=== PATIENT | male | born 1995 | race Caucasian/White ===

== ENCOUNTER 2016-11-24 21:41 | Emergency (ER) | payer OTHER ==
[~2016-11-24] VITALS: Ht 180.3 cm; Wt 72.8 kg
[2016-11-24 21:46] VITALS: TEMP 36.9; Ht 180.3 cm; Wt 72.8 kg
[2016-11-24] MEDS ORDERED: TRAM-10 PO (22:14)
[2016-11-24] MEDS ORDERED: AMOX500C3 PO (22:14)
[2016-11-24] MEDS ORDERED: AMOXICILLIN 500 MG CAP PO ONE (22:15)
[2016-11-24] MEDS ORDERED: TRAMADOL HCL 50 MG HOME PACK PO ONE (22:15)
[2016-11-24 22:42] VITALS: BP 118/70; PULSE 70; O2SAT 98
--- NOTE | 2016-11-24 22:44 | EMERGENCY ROOM VISIT NOTE ---
History First contact with patient: 22:01 Chief Complaint: DENTAL PAIN Stated Complaint: PAINFUL JAWLINE, BROKEN TOOTH TODAY Nursing Triage Summary: was eating and broke off left lower tooth. History of Present Illness The patient is a 21 year old male who presents to the Emergency Room with complaints of left lower dental pain for the past day after the tooth broke while eating. Patient has extensive dental decay. Patient has not seen a dentist in quite some time. Patient does smoke. He describes pain as aching, ranging in severity 6 out of 10. Nothing makes it better or worse. Patient denies chest pain, dyspnea, fever, chills, dysphagia, tongue swelling, facial swelling, neck stiffness, ear pain, cold symptoms, headache. Review of Systems See HPI for pertinent positives & negatives. A total of 10 systems reviewed and were otherwise negative. Past Medical/Surgical History Medical Problems: (1) Bronchitis (2) MRSA Family History Diabetes mellitus FH: cancer FH: heart disease FH: lung disease Hypertension Social History Smoking Status: Current Every Day Smoker Alcohol Use: none Marital Status: single Housing Status: unknown Occupation Status: employed Current/Historical Medications Scheduled Amoxicillin (Amoxil), 500 MG PO TID Scheduled PRN Tramadol (Ultram), 1 TAB PO Q4H PRN for Pain Allergies Coded Allergies: Acetaminophen (Verified Allergy, Unknown, rash, 03/01/16) Latex (Verified Allergy, Unknown, rash, 03/01/16) Physical Exam Vital Signs Date Time Temp Pulse Resp B/P Pulse Ox O2 Delivery O2 Flow Rate FiO2 11/24/16 21:46 36.9 66 18 140/69 97 Room Air Physical Exam VITALS: Vitals are noted on the nurse's note and reviewed by myself. Vital signs stable. GENERAL: White male with tobacco odor, in no acute distress, nondiaphoretic, well-developed well-nourished. SKIN: The skin was without rashes, erythema, edema, or bruising. There is no tenting of the skin. Capillary reflex less than 2 seconds. HEAD: Normocephalic atraumatic. EARS: External auditory canals clear, tympanic membranes pearly vargas without erythema or effusion bilaterally. EYES: Pupils equal round and reactive to light and accommodation. Conjunctivae without injection, sclerae without icterus. Extraocular movements intact. NOSE: Patent, turbinates without inflammation or discharge. No sinus tenderness. MOUTH: Mucous membranes moist. Pharynx without erythema or exudate. Uvula midline. Airway patent. Tongue does not deviate. Dental exam: Extensive dental decay throughout with no palpable abscess. No signs of Todd angina. Overall dental hygiene poor NECK: Supple without nuchal rigidity. No lymphadenopathy. No thyromegaly. Cervical spine is nontender. No JVD. No meningeal signs HEART: Regular rate and rhythm without murmurs gallops or rubs. LUNGS: Clear to auscultation bilaterally without wheezes, rales or rhonchi. No dullness to percussion. No retractions or accessory muscle use. ABDOMEN: Positive bowel sounds x 4. Normal tympanic percussion. Soft, nontender, without masses or organomegaly. Sanders sign negative. No guarding or rebound tenderness. MUSCULOSKELETAL: No muscle atrophy, erythema, or edema noted. NEURO: Patient was alert and oriented to person place and time. Normal sensation to light and sharp touch. No focal neurological deficits. Medical Decision & Procedures ED Course Prior records reviewed and summarized as above. Triage Nursing notes reviewed. The patient's history was concerning for dental pain Differential diagnosis: Etiologies such as cellulitis, abscess, Todd angina, gingivitis, cavity, as well as others were entertained.. Physical examination: The physical examination was consistent with dental pain from dental caries ER treatment provided: Amoxicillin, Ultram On reassessment the patient felt better. Diagnostics interpreted by me: Deferred This appears to be dental pain from dental caries. Patient had no symptoms palpable abscess. No signs of Todd angina. He was counseled appropriately hydrated verbalized understanding this. He was advised to follow-up with dentistry for definitive care here in the ER sooner for high fevers, facial swelling, neck stiffness, dysphagia, worsening signs or symptoms or as needed. By the evaluation outlined above emergent etiologies such as abscess, ludwigs angina as well as others were deemed relatively unlikely. The pt informed about the findings as listed above. All questions were answered and pleased with the treatment. Return instructions were outlined and the patient was discharged in stable condition. Outpatient prescription management: amoxil, ultram Referral: The patient was referred to dentistry for follow-up in 2 to 3 days for a recheck of the current condition. Medical Decision As above [place] Drug Monitoring Program Search Results: patient reviewed within database, see additional documentation (patient has had a few prescriptions in the past year) Impression Primary Impression: Tooth pain with chewing Additional Impression: Dental caries Departure Information Dispostion Home / Self-Care Condition GOOD Prescriptions Tramadol (Ultram) 50 Mg Tab 1 TAB PO Q4H Y for Pain, #14 TAB For Initial Treatment Prov: Ginger Wilder PA-C 11/24/16 Amoxicillin (AMOXIL) 500 Mg Cap 500 MG PO TID for 10 Days, #30 CAP Prov: Ginger Wilder PA-C 11/24/16 Referrals No Doctor, Assigned (PCP) Forms HOME CARE DOCUMENTATION FORM, IMPORTANT VISIT INFORMATION Patient Instructions Decay Tooth, Visit Dental, [facility] Additional Instructions Amoxicillin 500mg: Take one pill 3 times daily for 10 days for your infection. All antibiotics can cause diarrhea. If this occurs and you feel worse or it does not resolve in 1-2 days follow up with your doctor or return to the Emergency Department as this could be signs of serious underlying problems. Any medication can cause an allergic reaction, stop the pills immediately and return to the ER for rash, hives, breathing difficulties, or swelling. Ultram 50 mg: Take 1 pill every four hours for breakthrough pain. Avoid alcohol , operating machinery or dangerous equipment, working on ladders or roofs, DRIVING, or situations where being under the influence may be dangerous. It is recommended to use an mcul-qun-sdjdkwy stool softener such as Colace, 100mg twice daily while taking this medication to avoid constipation. Ibuprofen(Motrin, Advil) may be used for fever or pain. Use 600mg every six hours as needed. Take with food. Avoid using more than 2400mg in a 24 hour period. Do not use 2400mg per day for more than three consecutive days without physician direction. Prolonged inappropriate use can lead to stomach upset or ulcers. This medication can be taken if you need to drive, work, or perform activities which may be dangerous when taking narcotic pain medication. [place] teeth twice a day, floss daily and do warm saltwater gargles 3 times a day. See a dentist as soon as possible for definitive care for your dental problem. Return to ER sooner for facial swelling, fever, redness, worsening signs or symptoms or as needed. Problem Qualifiers
== END 2016-11-24 22:43 | disposition home or self-care (01) ==
LOC: C.EDB 21:43 → C.EDD 22:43
DX: K08.89 Other specified disorders of teeth and supporting structures (principal); F17.200 Nicotine dependence, unspecified, uncomplicated; Z83.3 Family history of diabetes mellitus; Z82.49 Family history of ischemic heart disease and other diseases of the circulatory system

== ENCOUNTER 2017-02-08 16:47 | Emergency (ER) | payer SELFPAY ==
[~2017-02-08] VITALS: Ht 180.3 cm; Wt 70.4 kg
[~2017-02-08 16:47] MED LIST: TRAM-10 PO
[2017-02-08 17:02] VITALS: BP 107/69; PULSE 86; TEMP 36.7; O2SAT 94; Ht 180.3 cm; Wt 70.4 kg
[2017-02-08] MEDS ORDERED: TRAM-10 PO (17:19)
[2017-02-08] MEDS ORDERED: AMOX500C3 PO (17:19)
--- NOTE | 2017-02-08 22:59 | EMERGENCY ROOM VISIT NOTE ---
History First contact with patient: 17:09 Chief Complaint: DENTAL PAIN Stated Complaint: SWOLLEN JAW/ PRESSURE/ VERY PAINFUL Nursing Triage Summary: Rigth sided dental pain. History of Present Illness The patient is a 21 year old male who presents to the Emergency Room with complaints of swelling of the right jaw and lump under the jaw line. The patient reports that he woke up this morning with swelling. He denied any swelling or discomfort yesterday. He now rates his discomfort an 8 out of 10. He is concerned about a possible dental abscess. He does not have a dentist. He denies any difficulty swallowing, fever or drainage in the mouth. He does report a history of chronic dental problems. Review of Systems 10 system review was performed and was negative except for pertinent positives and negatives as indicated in history of present illness Past Medical/Surgical History Medical Problems: (1) Bronchitis (2) MRSA Family History Diabetes mellitus FH: cancer FH: heart disease FH: lung disease Hypertension Social History Smoking Status: Current Every Day Smoker Alcohol Use: none Marital Status: single Housing Status: lives with family, unknown Occupation Status: unemployed Current/Historical Medications Scheduled Amoxicillin (Amoxil), 500 MG PO TID Scheduled PRN Tramadol (Ultram), 1 TAB PO Q4H PRN for Pain Tramadol (Ultram), 1-2 TAB PO Q4H PRN for Pain Allergies Coded Allergies: Acetaminophen (Verified Allergy, Unknown, rash, 03/01/16) Latex (Verified Allergy, Unknown, rash, 03/01/16) Physical Exam Vital Signs Date Time Temp Pulse Resp B/P Pulse Ox O2 Delivery O2 Flow Rate FiO2 02/08/17 17:02 36.7 86 18 107/69 94 Room Air Pain Rating (0-10): 6.0 Physical Exam CONSTITUTIONAL: Healthy and well nourished. Alert and oriented X 3 with positive affect. She does not appear in any acute distress. HEENT: Examination shows minimal edema over the right mandible. Pupils equal, round and reactive. Ears and nares are clear. OROPHARYNX: The patient has poor dentition and a severely decayed mandibular premolar. There is no gingival erythema, fluctuance or pointing. LYMPHATICS: There is a singular right submandibular lymph node. No submental or cervical chain adenopathy. NECK: Full active range of motion without discomfort. INTEGUMENTARY: No rash or other significant dermatologic conditions noted. NEUROLOGIC: No focal neurologic deficits noted. Medical Decision & Procedures ED Course Patient history and physical exam were performed. Nurse's notes were reviewed. Vital signs were reviewed and were normal. The patient was provided a prescription for amoxicillin and tramadol. He was also encouraged to administer ibuprofen 800 mg every 8 hours. He was instructed to find and follow -up with a dentist for further definitive management. He may also call his family doctor for further treatment until he can find a dentist. The patient was advised that the emergency department does not provide dental services, referrals or chronic dental pain management. The patient voiced understanding of all discharge instructions, and rated his pain a 5 out of 10 at the time of discharge. He refused any analgesics while in the emergency department. Medical Decision Impression Primary Impression: Periapical abscess Departure Information Dispostion Home / Self-Care Condition FAIR Prescriptions Tramadol (Ultram) 50 Mg Tab 1-2 TAB PO Q4H Y for Pain, #20 TAB For Initial Treatment Prov: Valdez Ariza PA 02/08/17 Amoxicillin (AMOXIL) 500 Mg Cap 500 MG PO TID for 10 Days, #30 CAP Prov: Valdez Ariza PA 02/08/17 Forms HOME CARE DOCUMENTATION FORM, IMPORTANT VISIT INFORMATION Patient Instructions [facility] Additional Instructions Complete all Augmentin antibiotics as prescribed. Ibuprofen 800 mg every 8 hours. Ultram as prescribed and if needed for worse pain. YOU MUST SEE A DENTIST FOR DEFINITIVE CARE. THE EMERGENCY DEPARTMENT DOES NOT PROVIDE DENTAL SERVICES, REFERRALS OR CHRONIC DENTAL PAIN MANAGEMENT. YOU MAY ALSO CALL YOUR FAMILY DOCTOR FOR PAIN MANAGEMENT UNTIL YOU FIND A DENTIST.
== END 2017-02-08 17:50 | disposition home or self-care (01) ==
LOC: C.EDB 16:48 → C.EDA 17:50
DX: K04.7 Periapical abscess without sinus (principal); F17.200 Nicotine dependence, unspecified, uncomplicated; Z86.14 Personal history of Methicillin resistant Staphylococcus aureus infection; Z83.3 Family history of diabetes mellitus; Z82.49 Family history of ischemic heart disease and other diseases of the circulatory system

== ENCOUNTER 2017-04-16 16:34 | Emergency (ER) | payer SELFPAY ==
[~2017-04-16] VITALS: Ht 180.3 cm; Wt 68.1 kg
[2017-04-16 16:36] VITALS: TEMP 36.9; Ht 180.3 cm; Wt 68.1 kg
[2017-04-16] MEDS ORDERED: IBUPROFEN 800 MG TAB PO STA (16:55)
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
--- NOTE | 2017-04-16 17:29 | DIAGNOSTIC IMAGING REPORT ---
RIGHT HAND MIN 3 VIEWS ROUTINE CLINICAL HISTORY: Right hand pain status post trauma COMPARISON: None. DISCUSSION: There is irregularity involving the base of the fifth metacarpal. A nondisplaced intraarticular fracture is suspected. No dislocations are evident. IMPRESSION: Nondisplaced intra-articular fracture involving the base of the fifth metacarpal Electronically signed by: Ren León M.D. 04/16/2017 5:27 PM Dictated Date/Time: 04/16/2017 5:27 PM
[2017-04-16 18:19] VITALS: BP 129/63; PULSE 71; O2SAT 96
== END 2017-04-16 18:20 | disposition home or self-care (01) ==
LOC: C.EDB 16:35 → C.EDD 18:20
DX: S62.346A Nondisplaced fracture of base of fifth metacarpal bone, right hand, initial encounter for closed fracture (principal); W22.8XXA Striking against or struck by other objects, initial encounter; F17.210 Nicotine dependence, cigarettes, uncomplicated

== ENCOUNTER 2023-08-19 10:52 | Inpatient (IN) ==
[2023-08-19] MEDS ORDERED: ALUMINUM/MAGNESIUM SUSP 30 ML UDC PO STA (11:27)
--- NOTE | 2023-08-19 11:30 | Emergency Department Note ---
Impression & Plan Anxiety, Suicidal ideation ED Provider Note NAME: STANISLAW PARKS II AGE: 28 SEX: M : 1995 ARRIVES VIA: Ambulance INFORMANT: Patient, ED PROVIDER(S): Marcelle Josue MD CHIEF COMPLAINT: Anxiety HPI: This is a 28-year-old male presenting for anxiety the patient states that he thinks he was having a panic attack. He woke up this morning noticed his heart was racing. He tried to calm it down but it would not. He noticed chest burning. This concerned that is having a heart attack and called 911. He states this happened before with previous anxiety/panic attacks. He now does not feel like he is having a heart attack but does feel anxious. He notes he does have a chest burning previously but has never had a work-up for it. Never been diagnosed with GERD. He has recently started on Effexor ordered as of yesterday. He otherwise notes he takes Suboxone. He denies any SI or HI. Does feel depressed overall. No fevers, chills, nausea, vomiting, diarrhea, constipation. ROS: See above HPI for pertinent positives & negatives. A total of 10 systems reviewed and were otherwise negative. PAST MEDICAL HISTORY: See Below PAST SURGICAL HISTORY: See Below FAMILY HISTORY: See Below SOCIAL HISTORY: See Below HOME MEDICATIONS: See Below ALLERGIES: See Below VITALS: See Below PHYSICAL EXAMINATION: General: resting comfortably in no acute distress, anxious appearing Head: Normocephalic and atraumatic Eyes: Normal inspection, extraocular muscles intact, no conjunctival pallor Ear, nose, throat: Normal external exam Neck: Normal range of motion Respiratory: Patient is in no respiratory distress, lungs clear to auscultation bilaterally Cardiovascular: RRR without murmur appreciated GI: soft, nontender, no guarding or rebound Extremities: Moves all extremities Neuro: The patient awake and alert, appropriately conversive,no focal decifits Skin: Warm, dry, and intact MEDICAL DECISION MAKING: This is a 28-year-old male presenting for anxiety. We will do screening work-up with EKG. Low concern for clinical ACS. No shortness of breath or hypoxia/tachycardia to suggest PE. Clinical concern for anxiety versus GERD. Patient's EKG is reviewed as below, no ST segment elevation consistent with STEMI. Otherwise patient blood work is reassuring without electrolyte disturbances, only slight anemia. Patient eventually requested inpatient as he was now suicidal,will add on psych screening labs. This lab work is otherwise unremarkable, he is medically clear for psychiatric intervention. Triage Nursing notes reviewed. Prior medical records reviewed Vital Signs: reviewed and remarkable for no significant abnormalities Differential diagnosis: Anxiety, ACS, PE ER treatment provided: See below Diagnostics interpreted by me: ECG: ECG independently interpreted by me with normal sinus rhythm, rate of 79, normal axis, normal TN, normal QRS, normal QTc, no ST segment elevations consistent with STEMI criteria Cardiac Monitoring: An order was placed for continuous cardiac monitoring. The monitor shows a rate of 72 with sinus rhythm Laboratory studies: As stated above and show below. Consultation(s): None Past Med/Surg History Medical History Drug abuse Dental caries Cellulitis No pertinent past medical history Surgical History No pertinent past surgical history Family History Other No pertinent family history Social History Smoking Status: Current some day smoker Hx Alcohol Use: No Hx Substance Use: No Preferred Language: Ethiopian Communication Ability: Effective Account Executive Healthcare Required: No Beliefs That Will Affect Care: None Feels Safe at Home: Yes Gender Identity: Male Assistive Devices: None Allergies Allergies Allergy/AdvReac Type Severity Reaction Status Date / Time acetaminophen Allergy Mild rash Verified 01/02/19 05:42 latex Allergy Mild rash Verified 01/02/19 05:42 Home Meds Home Medications Medication Instructions Recorded Confirmed buprenorphine 300 mg/1.5 mL 0 mg subcut UD 12/07/22 08/19/23 solution,exten.rel.subcutaneous syringe (Sublocade) hydroxyzine pamoate 25 mg capsule 25 mg PO Q8 PRN Anxiety 08/19/23 08/19/23 venlafaxine 75 mg capsule,extended 75 mg PO QPM 08/19/23 08/19/23 release 24 hr Results & Data (ED) Vital Signs Vital Signs - 24 hr 08/19/23 10:56 08/19/23 11:48 08/19/23 13:00 Temperature 36.7 C Temperature Source Oral Pulse Rate 68 Pulse Rate [Right Finger] 74 Respiratory Rate 20 20 Respiratory Effort / Characteristics Non-Labored Non-Labored Respiratory Depth Normal Normal Blood Pressure 117/70 Blood Pressure [Right Arm] 122/77 Blood Pressure Mean 85 Blood Pressure Mean [Right Arm] 92 Pulse Oximetry 98 98 Oxygen Delivery Method Room Air Room Air Room Air Sepsis Recent Fever Within 48 Hours No Sepsis New/Unexplained Change in Mental Status N/A Sepsis Action Taken by Nursing No Action Required 08/19/23 13:49 Temperature Temperature Source Pulse Rate Pulse Rate [Right Finger] 60 Respiratory Rate 17 Respiratory Effort / Characteristics Non-Labored Spontaneous Respiratory Depth Normal Blood Pressure Blood Pressure [Right Arm] 115/68 Blood Pressure Mean Blood Pressure Mean [Right Arm] 83 Pulse Oximetry 98 Oxygen Delivery Method Room Air Sepsis Recent Fever Within 48 Hours Sepsis New/Unexplained Change in Mental Status Sepsis Action Taken by Nursing Laboratory Data 08/19/23 11:48 08/19/23 11:48 Lab Results 08/19/23 08/19/23 08/19/23 Range/Units 11:48 12:39 12:41 WBC 6.16 (4.8-10.8) K/ul RBC 4.37 L (4.70-6.10) M/uL Hgb 13.6 L (14.0-18.0) g/dl Hct 38.9 L (42.0-52.0) % MCV 89.0 (80.0-100.0) fL MCH 31.1 (25.0-34.0) pg MCHC 35.0 (32.0-36.0) g/dL RDW Std Deviation 41.5 (36.4-46.3) fL RDW Coeff of Aline 12.6 (11.5-14.5) % Plt Count 268 (130-400) K/uL MPV 9.6 (9.4-12.4) fL Immature Gran % (Auto) 0.2 % Neut % (Auto) 74.8 % Lymph % (Auto) 13.5 % [place] % (Auto) 8.0 % Eos % (Auto) 2.4 % Baso % (Auto) 1.1 % Neut # (Auto) 4.61 (1.40-6.50) K/uL Lymph # (Auto) 0.83 L (1.20-3.40) K/uL [place] # (Auto) 0.49 (0.11-0.59) K/uL Eos # (Auto) 0.15 (0.00-0.50) K/uL Baso # (Auto) 0.07 (0.00-0.20) K/uL Immature Gran # (Auto) 0.01 (0.01-0.20) K/uL Sodium 139 (136-145) mmol/L Potassium 4.1 (3.5-5.1) mmol/L Chloride 104 (98-107) mmol/L Carbon Dioxide 31 (21-32) mmol/L Anion Gap 4 (3-11) BUN 12 (6-23) mg/dl Creatinine 0.69 (0.6-1.4) mg/dl Est Cr Clr Drug Dosing 133.3 ml/min Est GFR ( Amer) 147.6 ml/min Est GFR (Non-Af Amer) 127.4 ml/min BUN/Creatinine Ratio 17.4 (10-20) Glucose 99 (70-99(Fasting)) mg/dl Calcium 9.6 (8.6-10.3) mg/dl TSH 1.213 (0.300-4.500) uIu/ml Urine Color Yellow Urine Appearance Clear (Clear) Urine pH 7.0 (4.5-7.5) Ur Specific [place] 1.028 (1.000-1.030) Urine Protein Negative (Negative) Urine Glucose (UA) Negative (Negative) Urine Ketones Negative (Negative) Urine Blood Negative (Negative) Urine Nitrite Negative (Negative) Urine Bilirubin Negative (Negative) Urine Urobilinogen Negative (Negative) Ur Leukocyte Esterase Negative (Negative) Salicylates < 3.0 L (3.0-30) mg/dl Urine Opiates Screen Neg (Neg) Ur Methadone, Qual Neg (Neg) Acetaminophen < 3 L (10-30) ug/ml Urine Barbiturates Neg (Neg) Ur Phencyclidine (PCP) Neg (Neg) U Amphetamin/Meth Scrn Neg (Neg) MDMA (Ecstasy) Screen Neg (Neg) U Benzodiazepines Scrn Neg (Neg) Ur Cocaine Metabolite Neg (Neg) U Marijuana (THC) Screen Neg (Neg) Ethyl Alcohol mg/dL < 10.0 (<10.0) mg/dl SARS-CoV-2, RNA, NAAT (NEGATIVE) 11/09/23 Range/Units 12:57 WBC (4.8-10.8) K/ul RBC (4.70-6.10) M/uL Hgb (14.0-18.0) g/dl Hct (42.0-52.0) % MCV (80.0-100.0) fL MCH (25.0-34.0) pg MCHC (32.0-36.0) g/dL RDW Std Deviation (36.4-46.3) fL RDW Coeff of Aline (11.5-14.5) % Plt Count (130-400) K/uL MPV (9.4-12.4) fL Immature Gran % (Auto) % Neut % (Auto) % Lymph % (Auto) % [place] % (Auto) % Eos % (Auto) % Baso % (Auto) % Neut # (Auto) (1.40-6.50) K/uL Lymph # (Auto) (1.20-3.40) K/uL [place] # (Auto) (0.11-0.59) K/uL Eos # (Auto) (0.00-0.50) K/uL Baso # (Auto) (0.00-0.20) K/uL Immature Gran # (Auto) (0.01-0.20) K/uL Sodium (136-145) mmol/L Potassium (3.5-5.1) mmol/L Chloride (98-107) mmol/L Carbon Dioxide (21-32) mmol/L Anion Gap (3-11) BUN (6-23) mg/dl Creatinine (0.6-1.4) mg/dl Est Cr Clr Drug Dosing ml/min Est GFR ( Amer) ml/min Est GFR (Non-Af Amer) ml/min BUN/Creatinine Ratio (10-20) Glucose (70-99(Fasting)) mg/dl Calcium (8.6-10.3) mg/dl TSH (0.300-4.500) uIu/ml Urine Color Urine Appearance (Clear) Urine pH (4.5-7.5) Ur Specific [place] (1.000-1.030) Urine Protein (Negative) Urine Glucose (UA) (Negative) Urine Ketones (Negative) Urine Blood (Negative) Urine Nitrite (Negative) Urine Bilirubin (Negative) Urine Urobilinogen (Negative) Ur Leukocyte Esterase (Negative) Salicylates (3.0-30) mg/dl Urine Opiates Screen (Neg) Ur Methadone, Qual (Neg) Acetaminophen (10-30) ug/ml Urine Barbiturates (Neg) Ur Phencyclidine (PCP) (Neg) U Amphetamin/Meth Scrn (Neg) MDMA (Ecstasy) Screen (Neg) U Benzodiazepines Scrn (Neg) Ur Cocaine Metabolite (Neg) U Marijuana (THC) Screen (Neg) Ethyl Alcohol mg/dL (<10.0) mg/dl SARS-CoV-2, RNA, NAAT NEGATIVE (NEGATIVE) Administered Medications Miscellaneous (Remove Nicoderm Patch) 1 each N/A DAILY@0859 ON LICENSE OF [facility] Stop: 09/18/23 16:58 Last Admin: 08/19/23 17:23 Dose: Not Given Documented By: EDWIN Nicotine (Nicotine 14 Mg/24 Hr Patch) 14 mg TD QAM ESTEBAN Stop: 09/18/23 16:59 Last Admin: 08/19/23 17:23 Dose: Not Given Documented By: EDWIN Nicotine Polacrilex (Nicotine Polacrilex 2 Mg Gum) 2 piece MT PRN PRN PRN Reason: Nicotine Withdrawal Symptoms Stop: 09/18/23 16:47 Last Admin: 08/19/23 17:44 Dose: 2 piece Documented By: EDWIN Discontinued Medications Al Hydrox/Mg Hydrox/Simethicone (Aluminum/Magnesium Susp 30 Ml Udc) 30 ml PO NOW STA Stop: 08/19/23 11:28 Last Admin: 08/19/23 11:48 Dose: 30 ml Documented By: NRB Lorazepam (Lorazepam 1 Mg Tab) 1 mg SL NOW STA Stop: 08/19/23 14:04 Last Admin: 08/19/23 14:09 Dose: 1 mg Documented By: BS Nicotine (Nicotine 14 Mg/24 Hr Patch) 14 mg TD QAM ESTEBAN Stop: 09/18/23 15:59 Last Admin: 08/19/23 16:53 Dose: Not Given Documented By: ITALO Discharge Plan Visit Data Chief Complaint: Anxiety ED Provider: Marcelle Josue Discharge Problem: Anxiety, Suicidal ideation Patient Disposition: Admitted As Inpatient Discharge Instructions Interventions: ED Discharge Assessment Last Done: 08/19/23 16:22
[2023-08-19 12:19] LABS: Basophils # (auto) 0.07 K/uL (0.00-0.20); Basophils % (auto) 1.1 %; Eosinophils # (auto) 0.15 K/uL (0.00-0.50); Eosinophils % (auto) 2.4 %; Hematocrit (blood only) 38.9 % (42.0-52.0); Hemoglobin 13.6 g/dl (14.0-18.0); Immature Granulocytes # (auto) 0.01 K/uL (0.01-0.20); Immature Granulocytes % (auto) 0.2 %; Lymphocytes # (auto) 0.83 K/uL (1.20-3.40); Lymphocytes % (auto) 13.5 %; Mean Corpuscular Hemoglobin 31.1 pg (25.0-34.0); Mean Platelet Volume 9.6 fL (9.4-12.4); Monocytes # (auto) 0.49 K/uL (0.11-0.59); Neutrophils # (auto) 4.61 K/uL (1.40-6.50); Neutrophils % (auto) 74.8 %; Platelet Count 268 K/uL (130-400); RDW Coefficient of Variation 12.6 % (11.5-14.5); RDW Standard Deviation 41.5 fL (36.4-46.3); Red Blood Count 4.37 M/uL (4.70-6.10); White Blood Count 6.16 K/ul (4.8-10.8)
[2023-08-19 12:35] LABS: BUN Creatinine Ratio 17.4 (10-20); Calcium 9.6 mg/dl (8.6-10.3); Creatinine Clr Calc Pharmacy 133.3 ml/min; Est GFR (African American) 147.6 ml/min; Est GFR (Non-African American) 127.4 ml/min; Potassium 4.1 mmol/L (3.5-5.1)
[2023-08-19 13:14] LABS: Appearance Urine Clear (Clear); Bilirubin Urine Negative (Negative); Blood Urine Negative (Negative); Color Urine Yellow; Glucose Urine UA Negative (Negative); Ketones Urine Negative (Negative); Leukocyte Esterase Urine Negative (Negative); Nitrite Urine Negative (Negative); Protein Urine Negative (Negative); Specific Gravity Urine 1.028 (1.000-1.030); Urobilinogen Urine Negative (Negative)
[2023-08-19 13:41] LABS: Amphetamines+Metham, Urine Neg (Neg); Barbiturates, Urine Neg (Neg); Benzodiazepine, Urine Neg (Neg); Cocaine, Urine Neg (Neg); MDMA (Ecstacy), Urine Neg (Neg); Methadone, Urine Neg (Neg); Opiate, Urine Neg (Neg); Phencyclidine, Urine Neg (Neg)
[2023-08-19] MEDS ORDERED: LORazepam 1 MG TAB SL STA (14:03)
[2023-08-19 14:10] LABS: Acetaminophen < 3 ug/ml (10-30); Salicylate < 3.0 mg/dl (3.0-30)
[2023-08-19] MEDS ORDERED: hydrOXYzine HCl 25 MG TAB PO PRN ×3 (15:56→16:48)
[2023-08-19] MEDS ORDERED: SODIUM CHLORIDE 0.65% NA SOLN 45 ML (OCEAN) PRN ×2 (15:56→16:48)
[2023-08-19] MEDS ORDERED: NICOTINE POLACRILEX 2 MG GUM MT PRN (15:56)
[2023-08-19] MEDS ORDERED: BISMUTH SUBSALICYLATE LIQD 236 ML PO PRN ×2 (15:56→16:48)
[2023-08-19] MEDS ORDERED: ALUMINUM/MAGNESIUM SUSP 30 ML UDC PO PRN ×2 (15:56→16:48)
[2023-08-19] MEDS ORDERED: ACETAMINOPHEN 325 MG TAB PO PRN ×2 (15:56→16:48)
[2023-08-19] MEDS ORDERED: MAGNESIUM HYDROXIDE SUSP 30 ML UDC PO PRN ×2 (15:56→16:48)
[2023-08-19] MEDS ORDERED: NICOTINE 14 MG/24 HR PATCH TD SCH (16:00)
[2023-08-19] MEDS: NICOTINE 14 MG/24 HR PATCH TD SCH ×2 (17:19→17:23)
[2023-08-19] MEDS: NICOTINE POLACRILEX 2 MG GUM MT PRN ×2 (17:44→21:05)
[2023-08-19] MEDS: buprenorphine HCL 8 MG SUBL SL SCH (20:35)
--- NOTE | 2023-08-20 06:20 | History & Physical ---
Date of Service August 20, 2023 Impression / Recommendations Impression 28 yo male with history of panic attacks and SI, hx of opiod dependence on Suboxone, presented to ED X2 in 1 week. Overall, I spent a total of 60 minutes with this case, including review of chart, direct evaluation of the patient, counseling the patient, ordering medication, coordination with nursing, interdisciplinary team meeting, risk assessment, and documentation. (1) Depressive disorder: (2) Panic disorder: Plan The patient was admitted to the [facility] ([facility] [place]) on q15 min checks (behavioral with suicide precautions) for safety. The patient will participate in group, recreational, and milieu therapies and will be offered additional individual and family sessions as clinically appropriate. Risks/benefits/alternatives reviewed re: retrial of lower dose Lexapro vs. another SSRI. Patient preferred trial of Zoloft and will receive now dose 25 mg. Inventory Assets Strengths: future focussed re: relationships, help seeking Needs: increase coping and outpatient services Suicide Risk Level Suicide Risk Level: High-Moderate (q15 min suicide checks) Risk Factors Assessment Male: Yes : Yes Do You Have Access To A Gun?: No Health Problems: No Mental Health Diagnoses: Yes Substance Use Disorders: Yes Previous Attempt: No Family History of Suicide: No Previous Psychiatric Hospitalization: No Protective Factors Assessment Responsible for Young Children: Yes Employed: No Stable Relationships: Yes Supportive Family: Yes Psychiatric History Identifying Data STANISLAW PARKS is a 28-year-old M from [place] who was admitted on 08/19/23 15:56 on a 201 voluntary commitment for SI. Chief Complaint "I want these panic attacks to stop." History of Present Illness as per ED CM: Met with pt per nursing request after pt stated he has been thinking about suicide. Pt reported to the ED doctor that he had no SI or HI. He is stating now that he is experiencing both. He reports that he has SI daily for most, if not all of the day. He is not able to make these thoughts go away and states that he has been trying to figure out which way would be the least painful way to kill himself. Pt states he has not landed on a solid plan as of yet but does not feel he can remain safe outpatient anymore. His homicidal thoughts are not directed at anyone specific. He does not have any plans to hurt or kill anyone else but state these thoughts just pop up in his head at random times. Pt states that he does not currently have any outpatient providers. He did set up an appointment with [facility] for Wednesday, August 23, 2023, but does not feel he can make it to this appointment safely. Pt states he is unsure if this is an appointment for medication or for counseling. 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 He states he is currently prescribed Subutex for his prior drug use and that he has not used any substance since November 2022. Pt denies any alcohol use. Pt states that there have been no triggering events leading to his SI and HI. He was previously on Lexapro about 2 years ago and found this to be helpful but stopped taking it as he felt he no longer needed it. Pt also experiences anxiety daily that he does not feel he has good control over. Of note the patient had been seen in ED 1 week ago for panic and was referred to [facility]. It seems that he ?tried to restart Lexapro on his own and reacted to the dose. Similarly started Effexor day prior to representing to the ED with panic and then later endorsing SI. Today the patient reports no particular triggering stressor though he now admits he's on probation, out of work, living with family, and has a young child with his girlfriend who he hopes to . He was incarcerated for approximately 60 days on a violation, seemingly for use of "methadone, maybe oxyocodone." Otherwise, he reports on some form of Suboxone for 5 years. 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 He reports some social anxiety and describes himself as an introvert at baseline with little social interaction outside of family. Past Psychiatric History Outpatient Services: set up for an intake with [facility]. Previous Psych Admissions: none Do You Have Access To A Gun?: No History of Previous Suicide Attempt: No Past Medication Trials: Vistaril 25 mg ineffective Allergies Allergy/AdvReac Type Severity Reaction Status Date / Time acetaminophen Allergy Mild rash Verified 01/02/19 05:42 latex Allergy Mild rash Verified 01/02/19 05:42 Home Medications Medication Instructions Recorded Confirmed Type buprenorphine 300 mg/1.5 mL 0 mg subcut UD 12/07/22 08/19/23 History solution,exten.rel.subcutaneous syringe (Sublocade) hydroxyzine pamoate 25 mg capsule 25 mg PO Q8 PRN Anxiety 08/19/23 08/19/23 History venlafaxine 75 mg capsule,extended 75 mg PO QPM 08/19/23 08/19/23 History release 24 hr Family History Family History of: Doesn't Know Alcohol History Hx of Alcohol Use Over the Past 12 Months: No AUDIT Total Score: 0 Smoking Use Have You Smoked or Used Tobacco Products in the Last 30 Days: Yes tobacco type: cigarettes Smoking Status: Current some day smoker Smoking packs per day: 5 Substance History Hx of Prescription Med Misuse Over the Past 12 Months: No Hx of Over the Counter Med Misuse Over the Past 12 Months: No Hx of Inhalent Misuse Over the Past 12 Months: No Hx of Organic Substance Use Over the Past 12 Months: No Hx of Illegal Substances/Street Drug Use Over Past 12 Months: Yes (Nov 2022, Oxy and Meth) Problems as a Result of Past Substance Use: None Identified Personal History Living Arrangements: Home Highest Grade Completed: Did Not Graduate High School Employment Status: Unemployed Marital Status: Single Beliefs That Will Affect Care: None Hx Legal Problems: Yes (4 incarcerations, last on drug charge (reports others related to theft)) Hx Traumatic Life Events: No Patient History Medical History Drug abuse Dental caries Cellulitis No pertinent past medical history Surgical History No pertinent past surgical history Family History Other No pertinent family history Social History Smoking Status: Current some day smoker Hx Alcohol Use: No Hx Substance Use: No Preferred Language: Japanese Communication Ability: Effective Cane Pusher Required: No Beliefs That Will Affect Care: None Feels Safe at Home: Yes Gender Identity: Male Assistive Devices: None Review of Systems Review of Systems: All systems reviewed & are unremarkable except as noted in HPI & below Physical Exam Psychiatric: Orientation: alert and oriented x 3 Apperance: appropriately dressed and appropriately groomed Eye Contact: good eye contact Motor Behavior: no abnormal motor movements Speech: normal rate/rhythm/volume of speech Affect: + depressed affect Mood: + depressed mood Thought Process: goal directed thought process Thought Content: reality based without delusions Suicidal Thoughts: denies suicidal plan (though told ED he had been thinking of least painful way to ) and denies suicidal intent; + reports suicidal thoughts (intermittent, passive) Homicidal Thoughts: denies homicidal thoughts Hallucinations: no auditory hallucinations and no visual hallucinations Cognition: attention grossly intact and language grossly intact Estimated Intelligence: consistent with education level Insight: + limited insight Judgment: + limited judgement Vital Signs (Past 24 Hours): Last Vital Signs Temp 36.5 C 08/19/23 16:56 Pulse 67 08/19/23 16:56 Resp 16 08/19/23 16:56 BP 110/64 08/19/23 16:56 Pulse Ox 100 08/19/23 16:56 O2 Del Method Room Air 08/19/23 16:56 Exam Statement: A physical exam was performed in the ED by Dr. Josue for the purposes of medical clearance. I accept that physical as correct and adequate for the purposes of the inpatient physical exam. Results & Data ([facility]) Laboratory Results Laboratory Results - last 24 hr 08/19/23 08/19/23 08/19/23 11:48 12:39 12:41 WBC 6.16 RBC 4.37 L Hgb 13.6 L Hct 38.9 L MCV 89.0 MCH 31.1 MCHC 35.0 RDW Std Deviation 41.5 RDW Coeff of Aline 12.6 Plt Count 268 MPV 9.6 Immature Gran % (Auto) 0.2 Neut % (Auto) 74.8 Lymph % (Auto) 13.5 [place] % (Auto) 8.0 Eos % (Auto) 2.4 Baso % (Auto) 1.1 Neut # (Auto) 4.61 Lymph # (Auto) 0.83 L [place] # (Auto) 0.49 Eos # (Auto) 0.15 Baso # (Auto) 0.07 Immature Gran # (Auto) 0.01 Sodium 139 Potassium 4.1 Chloride 104 Carbon Dioxide 31 Anion Gap 4 BUN 12 Creatinine 0.69 Est Cr Clr Drug Dosing 133.3 Est GFR ( Amer) 147.6 Est GFR (Non-Af Amer) 127.4 BUN/Creatinine Ratio 17.4 Glucose 99 Calcium 9.6 TSH 1.213 Urine Color Yellow Urine Appearance Clear Urine pH 7.0 Ur Specific [place] 1.028 Urine Protein Negative Urine Glucose (UA) Negative Urine Ketones Negative Urine Blood Negative Urine Nitrite Negative Urine Bilirubin Negative Urine Urobilinogen Negative Ur Leukocyte Esterase Negative Salicylates < 3.0 L Urine Opiates Screen Neg Ur Methadone, Qual Neg Acetaminophen < 3 L Urine Barbiturates Neg Ur Phencyclidine (PCP) Neg U Amphetamin/Meth Scrn Neg MDMA (Ecstasy) Screen Neg U Benzodiazepines Scrn Neg Ur Cocaine Metabolite Neg U Marijuana (THC) Screen Neg Ethyl Alcohol mg/dL < 10.0 SARS-CoV-2, RNA, NAAT 08/19/23 12:57 WBC RBC Hgb Hct MCV MCH MCHC RDW Std Deviation RDW Coeff of Aline Plt Count MPV Immature Gran % (Auto) Neut % (Auto) Lymph % (Auto) [place] % (Auto) Eos % (Auto) Baso % (Auto) Neut # (Auto) Lymph # (Auto) [place] # (Auto) Eos # (Auto) Baso # (Auto) Immature Gran # (Auto) Sodium Potassium Chloride Carbon Dioxide Anion Gap BUN Creatinine Est Cr Clr Drug Dosing Est GFR ( Amer) Est GFR (Non-Af Amer) BUN/Creatinine Ratio Glucose Calcium TSH Urine Color Urine Appearance Urine pH Ur Specific [place] Urine Protein Urine Glucose (UA) Urine Ketones Urine Blood Urine Nitrite Urine Bilirubin Urine Urobilinogen Ur Leukocyte Esterase Salicylates Urine Opiates Screen Ur Methadone, Qual Acetaminophen Urine Barbiturates Ur Phencyclidine (PCP) U Amphetamin/Meth Scrn MDMA (Ecstasy) Screen U Benzodiazepines Scrn Ur Cocaine Metabolite U Marijuana (THC) Screen Ethyl Alcohol mg/dL SARS-CoV-2, RNA, NAAT NEGATIVE Diagnostic Findings EKG NSR with nl QTc Current Inpatient Medications Current Inpatient Medications: Current Inpatient Medications Acetaminophen (Acetaminophen 325 Mg Tab) 650 mg PO Q4H PRN PRN Reason: Headache or Minor Fever Stop: 09/18/23 16:47 Al Hydrox/Mg Hydrox/Simethicone (Aluminum/Magnesium Susp 30 Ml Udc) 30 ml PO Q4H PRN PRN Reason: GI Upset Stop: 09/18/23 16:47 Bismuth Subsalicylate (Bismuth Subsalicylate Liqd 236 Ml) 15 ml PO PRN PRN PRN Reason: Loose Stool Stop: 09/18/23 16:47 Buprenorphine HCl (Buprenorphine Hcl 8 Mg Subl) 8 mg SL BID [facility] Stop: 09/18/23 20:59 Last Admin: 08/19/23 20:35 Dose: 8 mg Hydroxyzine HCl (Hydroxyzine Hcl 25 Mg Tab) 50 mg PO HSZ PRN PRN Reason: Insomnia Stop: 09/18/23 16:47 Hydroxyzine HCl (Hydroxyzine Hcl 25 Mg Tab) 25 mg PO Q4H PRN PRN Reason: Anxiety Stop: 09/18/23 16:47 Magnesium Hydroxide (Magnesium Hydroxide Susp 30 Ml Udc) 30 ml PO DAILY PRN PRN Reason: Constipation Stop: 09/18/23 16:47 Miscellaneous (Remove Nicoderm Patch) 1 each N/A DAILY@0859 [facility] Stop: 09/18/23 16:58 Last Admin: 08/19/23 17:23 Dose: Not Given Nicotine (Nicotine 14 Mg/24 Hr Patch) 14 mg TD QAM [facility] Stop: 09/18/23 16:59 Last Admin: 08/19/23 17:23 Dose: Not Given Nicotine Polacrilex (Nicotine Polacrilex 2 Mg Gum) 2 piece MT PRN PRN PRN Reason: Nicotine Withdrawal Symptoms Stop: 09/18/23 16:47 Last Admin: 08/19/23 21:05 Dose: 2 piece Sodium Chloride (Sodium Chloride 0.65% Na Soln 45 Ml ([place])) 1 - 2 sprays NA PRN PRN PRN Reason: Nasal Dryness/Congestion Stop: 09/18/23 16:47
[2023-08-20] MEDS: buprenorphine HCL 8 MG SUBL SL SCH ×2 (09:40→21:01)
[2023-08-20] MEDS: NICOTINE 14 MG/24 HR PATCH TD SCH (09:41)
[2023-08-20] MEDS: NICOTINE POLACRILEX 2 MG GUM MT PRN ×4 (10:11→21:29)
[2023-08-20] MEDS ORDERED: SERTRALINE HCL 50 MG TABLET PO ONE (11:41)
--- NOTE | 2023-08-20 12:43 | Electrocardiogram Report ---
Test Reason : Blood Pressure : / mmHG Vent. Rate : 079 BPM Atrial Rate : 079 BPM P-R Int : 130 ms QRS Dur : 098 ms QT Int : 392 ms P-R-T Axes : 079 084 071 degrees QTc Int : 449 ms Normal sinus rhythm Normal ECG When compared with ECG of 13-AUG-2023 18:27, No significant change was found Confirmed by Case Sanchez ([id number]) on 08/20/2023 12:43:18 PM Referred By: REFERRED SELF Confirmed By:Case Sanchez
[2023-08-21] MEDS: buprenorphine HCL 8 MG SUBL SL SCH ×2 (09:55→21:08)
--- NOTE | 2023-08-21 09:59 | Psychiatric Progress Note ---
Date of Service August 21, 2023 Impression / Recommendations Impression 28 yo man with history of panic attacks and SI, opioid use disorder on maintenance therapy with Suboxone, presented to ED X2 in 1 week admitted for worsening depression/anxiety/SI and inability to function at home. Diagnostically consistent with unspecified depressive disorder and likely EBONI with panic attacks. MNPR for recent vague HI and history legal problems 08/21/2023: Ongoing anxiety and depression, tolerated initial dose of sertraline would like to continue this and consents to starting this daily for depression and EBONI with panic attacks. Reviewed side effects including but not limited to: GI, MCCORD, sexual side effects with sertraline. Will continue with low dose given poor response/side effects to prior SSRI/SNRI trial suggestive of possibility that he is a slow metabolizer. Overall, I spent a total of 35 minutes with this case, including review of chart, direct evaluation of the patient, counseling the patient, ordering medication, coordination with nursing, interdisciplinary team meeting, risk assessment, and documentation. (1) Depressive disorder: (2) Panic disorder: Plan 08/21/2023: Start sertraline 25mg daily. 08/20/2023: The patient was admitted to the [facility] ([facility] mental health unit) on q15 min checks (behavioral with suicide precautions) for safety. The patient will participate in group, recreational, and milieu therapies and will be offered additional individual and family sessions as clinically appropriate. Risks/benefits/alternatives reviewed re: retrial of lower dose Lexapro vs. another SSRI. Patient preferred trial of Zoloft and will receive now dose 25 mg. Inventory Assets Strengths: future focussed re: relationships, help seeking Needs: increase coping and outpatient services Suicide Risk Level Suicide Risk Level: High-Moderate (q15 min suicide checks) (SI with depression and anxiety prior to admission but feels safe in the hospital, denied SI this morning, feels comfortable letting staff know if he feels unsafe or feels in need of additional support. ) Risk Factors Assessment Male: Yes : Yes Do You Have Access To A Gun?: No Health Problems: No Mental Health Diagnoses: Yes Substance Use Disorders: Yes Previous Attempt: No Family History of Suicide: No Previous Psychiatric Hospitalization: No Protective Factors Assessment Responsible for Young Children: Yes Employed: No Stable Relationships: Yes Supportive Family: Yes Interval History Identifying Information STANISLAW PARKS is a 28-year-old M from [place] who was admitted on 08/19/23 15:56 on a 201 voluntary commitment for SI. Chief Complaint "I feel weird, I woke up for vitals and they told me my blood pressure was low which freaked me out". Review of Systems Sleep Information Total Hours of Sleep: 6 Meal Information Percent Meal Consumed - Breakfast: 0 Percent Meal Consumed - Lunch: 100 Percent Meal Consumed - Dinner: 40 Subjective Subjective Patient was seen & assessed and interval progress reviewed with treatment team nursing and social work. Attending groups but not offering much spontaneous interaction with others. Slept in until about 10:30am this morning. He reports feeling a lot of anxiety after morning vital signs as he was still kind of asleep and recalled them telling him his BP was low which caused anxiety. He denies any dizziness or symptoms associated with his BP, reviewed that low BP can be very normal and healthy, especially during sleep/lying down in young healthy adults which he found reassuring. He denies any issues with the sertraline trial yesterday, would like to continue this. Still dealing with anxiety, reviewed option to try Vistaril which he feels would be useful. Physical Exam Psychiatric Orientation: alert and oriented x 3 Apperance: appropriately dressed and appropriately groomed Eye Contact: good eye contact Motor Behavior: no abnormal motor movements Speech: normal rate/rhythm/volume of speech Affect: + constricted affect Mood: + depressed mood and + anxious mood Thought Process: goal directed thought process Thought Content: reality based without delusions Suicidal Thoughts: denies suicidal plan (though told ED he had been thinking of least painful way to ) and denies suicidal intent; + reports suicidal thoughts (intermittent, passive) Homicidal Thoughts: denies homicidal thoughts Hallucinations: no auditory hallucinations and no visual hallucinations Cognition: attention grossly intact and language grossly intact Estimated Intelligence: consistent with education level Insight: + limited insight Judgment: + limited judgement Vital Signs (Past 24 Hours) Last Vital Signs Temp 36.5 C 08/21/23 07:07 Pulse 93 H 08/21/23 07:08 Resp 16 08/21/23 07:07 BP 110/73 08/21/23 07:08 Pulse Ox 100 08/19/23 16:56 O2 Del Method Room Air 08/19/23 16:56 Results & Data ([facility]) Current Inpatient Medications Current Inpatient Medications: Current Inpatient Medications Acetaminophen (Acetaminophen 325 Mg Tab) 650 mg PO Q4H PRN PRN Reason: Headache or Minor Fever Stop: 09/18/23 16:47 Al Hydrox/Mg Hydrox/Simethicone (Aluminum/Magnesium Susp 30 Ml Udc) 30 ml PO Q4H PRN PRN Reason: GI Upset Stop: 09/18/23 16:47 Bismuth Subsalicylate (Bismuth Subsalicylate Liqd 236 Ml) 15 ml PO PRN PRN PRN Reason: Loose Stool Stop: 09/18/23 16:47 Buprenorphine HCl (Buprenorphine Hcl 8 Mg Subl) 8 mg SL BID ESTEBAN Stop: 09/18/23 20:59 Last Admin: 08/21/23 09:55 Dose: 8 mg Hydroxyzine HCl (Hydroxyzine Hcl 25 Mg Tab) 50 mg PO HSZ PRN PRN Reason: Insomnia Stop: 09/18/23 16:47 Hydroxyzine HCl (Hydroxyzine Hcl 25 Mg Tab) 25 mg PO Q4H PRN PRN Reason: Anxiety Stop: 09/18/23 16:47 Magnesium Hydroxide (Magnesium Hydroxide Susp 30 Ml Udc) 30 ml PO DAILY PRN PRN Reason: Constipation Stop: 09/18/23 16:47 Miscellaneous (Remove Nicoderm Patch) 1 each N/A DAILY@0859 [facility] Stop: 09/18/23 16:58 Last Admin: 08/20/23 09:41 Dose: Not Given Nicotine (Nicotine 14 Mg/24 Hr Patch) 14 mg TD QAM [facility] Stop: 09/18/23 16:59 Last Admin: 08/20/23 09:41 Dose: Not Given Nicotine Polacrilex (Nicotine Polacrilex 2 Mg Gum) 2 piece MT PRN PRN PRN Reason: Nicotine Withdrawal Symptoms Stop: 09/18/23 16:47 Last Admin: 08/20/23 21:29 Dose: 2 piece Sodium Chloride (Sodium Chloride 0.65% Na Soln 45 Ml ([place])) 1 - 2 sprays NA PRN PRN PRN Reason: Nasal Dryness/Congestion Stop: 09/18/23 16:47 Mental Health & Subst Abuse Tx Psychiatrist Name of Psychiatrist: [facility]- [facility]KE Psychiatrist's Date Of Appointment With Psychiatric Provider: 08/23/2023 RESCHEDULE IF NOT LEAVING BEFORE WEDNESDAY Psychiatric Appointment Comment: [address] [place] [address] Therapist Name of Therapist: [facility]- [facility] The[facility]ist's Date of Therapist Appointment: 08/23/2023 RESCHEDULE IF NOT LEAVING BEFORE WEDNESDAY Therapy Appointment Comment: [address] [place] [address] Post Discharge Appointments Primary Care Physician Name Of Family Doctor/PCP: [facility] Time of Appointment with PCP: please follow up as needed Provider Appointment Comment: [address] [place] [address] , [place] [address] Contact Information Discharge Discharge Address: [address], [place] [address]
[2023-08-21] MEDS: NICOTINE 14 MG/24 HR PATCH TD SCH (11:30)
[2023-08-21] MEDS: hydrOXYzine HCl 25 MG TAB PO PRN ×2 (11:52→17:34)
[2023-08-21] MEDS: NICOTINE POLACRILEX 2 MG GUM MT PRN ×4 (13:22→21:07)
[2023-08-21] MEDS: SERTRALINE HCL 50 MG TABLET PO SCH (13:22)
[2023-08-22] MEDS: NICOTINE 14 MG/24 HR PATCH TD SCH (09:10)
[2023-08-22] MEDS: buprenorphine HCL 8 MG SUBL SL SCH ×2 (09:12→20:47)
[2023-08-22] MEDS: SERTRALINE HCL 50 MG TABLET PO SCH (09:12)
[2023-08-22] MEDS: NICOTINE POLACRILEX 2 MG GUM MT PRN ×6 (10:00→21:32)
--- NOTE | 2023-08-22 10:21 | Psychiatric Progress Note ---
Date of Service August 22, 2023 Impression / Recommendations Impression 28 yo man with history of panic attacks and SI, opioid use disorder on maintenance therapy with Suboxone, presented to ED X2 in 1 week admitted for worsening depression/anxiety/SI and inability to function at home. Diagnostically consistent with unspecified depressive disorder and likely EBONI with panic attacks. 08/22/2023: Mood improving today, tolerating sertraline well and finding this helpful. Needs family support meeting. Tolerating Vistaril well as needed for panic attacks/increased anxiety. Overall, I spent a total of 25 minutes with this case, including review of chart, direct evaluation of the patient, counseling the patient, coordination with nursing, interdisciplinary team meeting, risk assessment, and documentation. (1) Depressive disorder: (2) Panic disorder: Plan 08/22/2023: Continue current medications and tx plan. 08/21/2023: Start sertraline 25mg daily. 08/20/2023: The patient was admitted to the [facility]) on q15 min checks (behavioral with suicide precautions) for safety. The patient will participate in group, recreational, and milieu therapies and will be offered additional individual and family sessions as clinically appropriate. Risks/benefits/alternatives reviewed re: retrial of lower dose Lexapro vs. another SSRI. Patient preferred trial of Zoloft and will receive now dose 25 mg. Inventory Assets Strengths: future focussed re: relationships, help seeking Needs: increase coping and outpatient services Suicide Risk Level Suicide Risk Level: Moderate (q15 min suicide checks) (SI with depression and anxiety prior to admission but feels safe in the hospital, mood improving now, denies SI, feels comfortable letting staff know if he feels unsafe or feels in need of additional support. ) Risk Factors Assessment Male: Yes : Yes Do You Have Access To A Gun?: No Health Problems: No Mental Health Diagnoses: Yes Substance Use Disorders: Yes Previous Attempt: No Family History of Suicide: No Previous Psychiatric Hospitalization: No Protective Factors Assessment Responsible for Young Children: Yes Employed: No Stable Relationships: Yes Supportive Family: Yes Interval History Identifying Information STANISLAW PARKS is a 28-year-old M from [place] who was admitted on 08/19/23 15:56 on a 201 voluntary commitment for SI. Chief Complaint "I'm feeling a lot better". Review of Systems Sleep Information Total Hours of Sleep: 6 Sleep Comments: slept in this morning so closer to 8.5 hours Meal Information Percent Meal Consumed - Breakfast: 0 Percent Meal Consumed - Lunch: 75 Percent Meal Consumed - Dinner: 100 Subjective Subjective Patient was seen & assessed and interval progress reviewed with treatment team nursing and social work. Visited with his viki yesterday. Had some evening anxiety and got prn Vistaril. Went to community meeting. This morning reports his anxiety and mood are improving. No longer having any somatic symptoms of heart racing sensation/pounding heart that he attributed to panic/anxiety previously. He feels the groups, getting more sleep and the sertraline is helping. Feels his SI is significantly reduced. Denies any HI, confirms that prior thoughts were vague and never with intent to harm anyone generally or specific or with any plans but thinks he felt more irritable due to anxiety. Has not experienced these since admission. Denies any side effects from the sertraline. Found prn Vistaril helpful for moment of high level of anxiety last evening. Physical Exam Psychiatric Orientation: alert and oriented x 3 Apperance: appropriately dressed and appropriately groomed Eye Contact: good eye contact Motor Behavior: no abnormal motor movements Speech: normal rate/rhythm/volume of speech Affect: + constricted affect (but with a few smiles) Mood: + depressed mood and + anxious mood Thought Process: goal directed thought process Thought Content: reality based without delusions Suicidal Thoughts: denies suicidal thoughts, denies suicidal plan and denies suicidal intent Homicidal Thoughts: denies homicidal thoughts, denies homicidal plan and denies homicidal intent Hallucinations: no auditory hallucinations and no visual hallucinations Cognition: attention grossly intact and language grossly intact Estimated Intelligence: consistent with education level Insight: + fair insight Judgment: + fair judgement Vital Signs (Past 24 Hours) Last Vital Signs Temp 36.7 C 08/22/23 06:00 Pulse 74 08/22/23 07:12 Resp 16 08/22/23 06:00 BP 108/65 08/22/23 07:12 Pulse Ox 100 08/19/23 16:56 O2 Del Method Room Air 08/19/23 16:56 Results & Data ([facility]) Current Inpatient Medications Current Inpatient Medications: Current Inpatient Medications Acetaminophen (Acetaminophen 325 Mg Tab) 650 mg PO Q4H PRN PRN Reason: Headache or Minor Fever Stop: 09/18/23 16:47 Al Hydrox/Mg Hydrox/Simethicone (Aluminum/Magnesium Susp 30 Ml Udc) 30 ml PO Q4H PRN PRN Reason: GI Upset Stop: 09/18/23 16:47 Bismuth Subsalicylate (Bismuth Subsalicylate Liqd 236 Ml) 15 ml PO PRN PRN PRN Reason: Loose Stool Stop: 09/18/23 16:47 Buprenorphine HCl (Buprenorphine Hcl 8 Mg Subl) 8 mg SL BID ESTEBAN Stop: 09/18/23 20:59 Last Admin: 08/22/23 09:12 Dose: 8 mg Hydroxyzine HCl (Hydroxyzine Hcl 25 Mg Tab) 50 mg PO HSZ PRN PRN Reason: Insomnia Stop: 09/18/23 16:47 Hydroxyzine HCl (Hydroxyzine Hcl 25 Mg Tab) 25 mg PO Q4H PRN PRN Reason: Anxiety Stop: 09/18/23 16:47 Last Admin: 08/21/23 17:34 Dose: 25 mg Magnesium Hydroxide (Magnesium Hydroxide Susp 30 Ml Udc) 30 ml PO DAILY PRN PRN Reason: Constipation Stop: 09/18/23 16:47 Miscellaneous (Remove Nicoderm Patch) 1 each N/A DAILY@0859 [facility] Stop: 09/18/23 16:58 Last Admin: 08/22/23 09:10 Dose: Not Given Nicotine (Nicotine 14 Mg/24 Hr Patch) 14 mg TD QAM [facility] Stop: 09/18/23 16:59 Last Admin: 08/22/23 09:10 Dose: Not Given Nicotine Polacrilex (Nicotine Polacrilex 2 Mg Gum) 2 piece MT PRN PRN PRN Reason: Nicotine Withdrawal Symptoms Stop: 09/18/23 16:47 Last Admin: 08/22/23 10:00 Dose: 2 piece Sertraline HCl (Sertraline Hcl 50 Mg Tablet) 25 mg PO QAM [facility] Stop: 09/20/23 11:59 Last Admin: 08/22/23 09:12 Dose: 25 mg Sodium Chloride (Sodium Chloride 0.65% Na Soln 45 Ml ([place])) 1 - 2 sprays NA PRN PRN PRN Reason: Nasal Dryness/Congestion Stop: 09/18/23 16:47 Mental Health & Subst Abuse Tx Psychiatrist Name of Psychiatrist: [facility]- [facility] Psychiatrist's Date Of Appointment With Psychiatric Provider: 08/23/2023 RESCHEDULE IF NOT LEAVING BEFORE WEDNESDAY Psychiatric Appointment Comment: [address], [place] [address] Therapist Name of Therapist: [facility]- [facility] Therapist's Date of Therapist Appointment: 08/23/2023 RESCHEDULE IF NOT LEAVING BEFORE WEDNESDAY Therapy Appointment Comment: [address] [place] [address] Post Discharge Appointments Primary Care Physician Name Of Family Doctor/PCP: Erich Jaffe Primary [facility] Time of Appointment with PCP: please follow up as needed Provider Appointment Comment: [address] [place] [address] , [place] [address] Contact Information Discharge Discharge Address: [facility] [place] [address]
[2023-08-22] MEDS: hydrOXYzine HCl 25 MG TAB PO PRN (17:01)
--- OUTSIDE RECORDS SUMMARY | 2023-08-23 08:19 | External Medical Summary | Summary of Care ---
Author Name Unknown Organization [facility] Address [address] [place] [address] Phone [phone] Care Team Providers Care Interior Design Professor Name Role Phone Leslye Singh MD Primary Care Prov ider Reason for Visit * Reason Comments Re-Check Encounter Details Date Type Department Care Team (Late st Contact Info) Description 08/18/2023 11:00 AM EST Office Visit Family Medicine [address] [phone] Jaya Hernandez MD [address] [place] [address] [place] [address] Panic attacks*; Anxiety; History of narcotic addiction (HCC) Allergies Active Allergy Reactions Criticality Noted Date Comments Acetaminophen 01/03/2019 Rash documented as of this encounter (statuses as of 08/18/2023) Medications Medication Sig Dispensed Refills Start Date End Date Status Buprenorphine HCl 8 MG Sublingual Tablet Sublingual (Subutex)Indications :History of narcotic addiction (HCC) Place 1 Tablet under the tongue in the morning. 14 Tablet 0 10/07/2022 Active Venlafaxine HCl ER 75 MG Oral Capsule Extended Release 24 Hour (Effexor XR)Indications:Panic attacks,Anxiety Take 1 Capsule by mouth in the morning. Do not cut, crush or chew. 30 Capsule 5 08/18/2023 Active documented as of this encounter (statuses as of 08/18/2023) Active Problems Problem Noted Date Diagnosed Date Food insecurity 02/16/2022 Overview: Per [facility] Protocol Anxiety 01/03/2019 Panic attacks 01/03/2019 History of narcotic addiction 01/03/2019 Tobacco use disorder 01/03/2019 Palpitations 01/03/2019 documented as of this encounter (statuses as of 08/18/2023) Immunizations Name Administration Dates Next Due TDAP (age 10 and older)(Boostrix) 01/03/2019 documented as of this encounter Social History Tobacco Use Types Packs/Day Years Used Date Smoking Tobacco: Every Day Cigarettes 1.5 12 Smokeless Tobacco: Current Chew Tobacco Cessation:Ready to Q uit: Not Asked; Counseling Given: Not Answered Alcohol Use Standard Drinks/Week Comments No 0 (1 standard drink = 0.6 oz pur e alcohol) AUDIT-C Answer Date Recorded Frequency of Alcohol Consumption Never 01/03/2019 Average Number of Drinks Not on file 019 Frequency of Binge Drinking Not on file 12/10 PHQ-2 Answer Date Recorded PHQ-2 Score -1 01/03/2019 Sex and Gender Information Value Date Recorded Sex Assigned at Not on file Gender Identity Not on file Sexual Orientation Not on file Job Start Date Occupation Industry Not on file Not on file Not on file documented as of this encounter Last Filed Vital Signs Vital Sign Reading Time Taken Comments Blood Pressure 106/70 08/18/2023 10:59 AM EST Pulse 82 08/18/2023 10:59 AM EST Temperature 36.1 C (96.9 F) 08/18/2023 10:[address] Respiratory Rate 16 08/18/2023 10:59 AM EST Oxygen Saturation - - Inhaled Oxygen Concentration - - Weight 60.4 kg (133 lb 2 oz) 08/18/2023 10:59 AM EST Height 177.8 cm (5' 10") 08/18/2023 10:59 AM EST Body Mass Index 19.1 08/18/2023 10:59 AM EST documented in this encounter Progress Notes * Jaya Hernandez MD - 08/18/2023 10:59 AM EST I have reviewed the patients controlled substance dispensing history in the Prescription Drug Monitoring Program in compliance with the [place] regulations before prescribing a controlled substance. Last Tox Screen Results: No results found for this or any previous visit. Getting buprenorphine [address] Zenon Sow had a panic attack, chest was burning and heart was racing on 08/13 so he was seen in ER, given Ativan there to calm down and then hydroxyzine for home and told to follow up with us. In the past I see he was on Lexapro for a while. Patient Active Problem List Diagnosis Code Anxiety F41.9 Panic attacks F41.0 History of narcotic addiction ([facility]) F11.21 Tobacco use disorder F17.200 Palpitations R00.2 Food insecurity Z59.41 Past Medical History: Diagnosis Date Accidental methadone overdose (HCC) 12/07/2022 ER, released Anxiety 01/03/2019 COVID-19 10/07/2022 Dental caries Narcotic addiction ([facility]) Palpitations Panic attacks 01/03/2019 No past surgical history on file. Review of patient's allergies indicates: Allergen Reactions Tylenol [Acetaminophen] Rash Social History Socioeconomic History Marital status: Single Spouse name: Not on file Number of children: Not on file Years of education: Not on file Highest education level: Not on file Occupational History Not on file Tobacco Use Smoking status: Every Day Packs/day: 1.50 Years: 12.00 Additional pack years: 0.00 Total pack years: 18.00 Types: Cigarettes Smokeless tobacco: Current Types: Chew Substance and Sexual Activity Alcohol use: No Drug use: No Comment: quit smoking marijuana Sexual activity: Not on file Other Topics Concern Not on file Social History Narrative Not on file Social Determinants of Health Financial Resource Strain: Not on file Food Insecurity: Not on file Transportation Needs: Not on file Physical Activity: Not on file Stress: Not on file Social Connections: Not on file Intimate Partner Violence: Not on file Housing Stability: Not on file Current Outpatient Medications Medication Sig Dispense Refill Buprenorphine HCl 8 MG Sublingual Tablet Sublingual (Subutex) Place 1 Tablet under the tongue in the morning. 14 Tablet 0 No current facility-administered medications for this visit. O: Blood pressure 106/70, pulse 82, temperature 36.1 C (96.9 F), temperature source Tympanic, resp. rate 16, height 1.778 m (5' 10"), weight 60.4 kg (133 lb 2 oz). Neck is supple without adenopathy or thyromegaly. Chest is symmetrical and moves normally. The lungs are clear without wheezes, rales, rhonchi or rubs, and the heart is regular without murmurs or gallops, or ectopy. PMI not displaced. A: Panic attacks (Primary) - Venlafaxine HCl ER 75 MG Oral Capsule Extended Release 24 Hour (Effexor XR); Take 1 Capsule by mouth in the morning. Do not cut, crush or chew. Anxiety - Venlafaxine HCl ER 75 MG Oral Capsule Extended Release 24 Hour (Effexor XR); Take 1 Capsule by mouth in the morning. Do not cut, crush or chew. History of narcotic addiction (HCC) Plan is to increase in 4 weeks, consider beta adan Follow Up: Return in about 4 weeks (around 09/15/2023) for Clinic Visit. | For: Clinic Visit documented in this encounter Nursing Notes * Nessa Gaston LPN - 08/18/2023 10:59 AM EST C/o anxiety. Recent hospitalization for it. documented in this encounter Plan of Treatment Upcoming Encounters Date Type Department Care Team (Late st Contact Info) Description 09/16/2023 10:40 AM EST Office Visit Family Medicine [address] [phone] Jaya Hernandez MD [address] [place] [address] [place] [address] Health Maintenance Due Date Last Done Comments Hepatitis B (1 of 3 - 3-dose series) 1993 COVID-19 Vaccine (#1) 1993 Pneumococcal Vaccine: Pediat rics (0 to 5 Years) and At-Risk Patients (6 to 64 Years) (1 - PCV) 1999 Depression Screening 01/04/2020 01/03/2019 Influenza Vaccine (FLU shot) (#1) 2023 DTaP,Tdap,and Td Vaccines (2 - Td or Tdap) 01/03/2029 01/03/2019 GARDASIL-HPV IMMUNIZATION SERIES Aged Out No longer eligible based on patient's age to complete this topic MENINGOCOCCAL (MENACTRA/MENVEO) Aged Out No longer eligible based on patient's age to complete this topic documented as of this encounter Medical Devices Not on filedocumented as of this encounter Visit Diagnoses Diagnosis Panic attacks- Primary Panic disorder without agoraphobia Anxiety Anxiety state, unspecified History of narcotic addiction (HCC) Opioid type dependence, in remission documented in this encounter Care Teams Interior Design Professor Relationship Specialty Start Date End Date Leslye Singh MD PCP - General Family Medicine 01/03/19 documented as of this encounter
[2023-08-23] MEDS: SERTRALINE HCL 50 MG TABLET PO SCH (09:23)
[2023-08-23] MEDS: buprenorphine HCL 8 MG SUBL SL SCH (09:23)
[2023-08-23] MEDS: NICOTINE 14 MG/24 HR PATCH TD SCH (09:31)
--- NOTE | 2023-08-23 10:06 | Discharge Summary ---
Date of Service August 23, 2023 History of Present Illness Per admission H&P by Dr. Monroy: as per ED CM: Met with pt per nursing request after pt stated he has been thinking about suicide. Pt reported to the ED doctor that he had no SI or HI. He is stating now that he is experiencing both. He reports that he has SI daily for most, if not all of the day. He is not able to make these thoughts go away and states that he has been trying to figure out which way would be the least painful way to kill himself. Pt states he has not landed on a solid plan as of yet but does not feel he can remain safe outpatient anymore. His homicidal thoughts are not directed at anyone specific. He does not have any plans to hurt or kill anyone else but state these thoughts just pop up in his head at random times. Pt states that he does not currently have any outpatient providers. He did set up an appointment with [facility] for Wednesday, August 23, 2023, but does not feel he can make it to this appointment safely. Pt states he is unsure if this is an appointment for medication or for counseling. 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 He states he is currently prescribed Subutex for his prior drug use and that he has not used any substance since November 2022. Pt denies any alcohol use. Pt states that there have been no triggering events leading to his SI and HI. He was previously on Lexapro about 2 years ago and found this to be helpful but stopped taking it as he felt he no longer needed it. Pt also experiences anxiety daily that he does not feel he has good control over. Of note the patient had been seen in ED 1 week ago for panic and was referred to [facility]. It seems that he ?tried to restart Lexapro on his own and reacted to the dose. Similarly started Effexor day prior to representing to the ED with panic and then later endorsing SI. Today the patient reports no particular triggering stressor though he now admits he's on probation, out of work, living with family, and has a young child with his girlfriend who he hopes to . He was incarcerated for approximately 60 days on a violation, seemingly for use of "methadone, maybe oxyocodone." Otherwise, he reports on some form of Suboxone for 5 years. 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 He reports some social anxiety and describes himself as an introvert at baseline with little social interaction outside of family. Physical Exam Vital Signs (Past 24 Hours) Last Vital Signs Temp 36.4 C L 08/23/23 06:48 Pulse 69 08/23/23 06:49 Resp 16 08/23/23 06:48 BP 104/55 L 08/23/23 06:49 Pulse Ox 100 08/19/23 16:56 O2 Del Method Room Air 08/19/23 16:56 See admission H&P and DOD summary. Principal Diagnosis Major Depressive Disorder with anxious distress Psychiatric Data See daily stay summary. In short, patient was engaged with the social/therapeutic milieu of the unit, safety was maintained and the patient was cooperative with care. Medication changes included initiation of sertraline 25mg daily and Vistaril 25-50mg daily prn for anxiety/insomnia and they tolerated this well. If he continues to tolerate sertraline well the dose could be increased to 50mg daily in 1-2 weeks. A family session was held and safety plan was completed prior to discharge. He participated in safety planning and in discussions about ways to seek support and recognizing warning signs and utilizing coping skills. Reviewed mobile apps that could be used for additional ways to have their safety plan and contacts easily available should thoughts of SI re-emerge in the future. Reviewed importance of seeking emergency care should SI intensify, worsen or should they feel unsafe in the future which they agree to do. On the day of discharge he stated his mood was "a little anxious but good" and remained future-oriented including seeing his fiancee, seeing his family and his baby and engaging in aftercare appointments for therapy/psychiatry at [facility]. Day of Discharge Assessment Today the patient voices readiness for discharge. They note improvement in mood and anxiety. They deny thoughts of harm to self or others. Thoughts are organized and they are clinically improved from admission. There is no evidence of psychosis. They improved in the hospital with support and medication adjustments. They agree to take medications as prescribed and keep follow-up appointments. At the time of the discharge they are deemed to be stable and appropriate for outpatient level of care. They are not deemed to be at imminent risk of harm to self or others. They are aware of emergency and crisis services. Knows to call 911 or go to nearest emergency care center if in a crisis which cannot be handled as an outpatient. Overall, I spent a total of 35 minutes with this discharge including review of chart records, direct evaluation of the patient counseling the patient, discussion during interdisciplinary treatment rounds, risk assessment, ordering medication, disposition planning and documentation in the electronic health record. Transition of Care Transition Of Care Record: was reviewed with the patient Advance Directives Advance Directives Information Provided: Yes Advance Directives: No Mental Health Advance Directive: No Advance Directives on File: No Living Will: No Power of Taping Foreman: No Advance Directives Reason:: Declines as Mental Health Visit. Suicide Risk Level Suicide Risk Level Comments: Acute risk is low given improvement in mood and denial of SI, lack of access to lethal means,improvement in sleep, decrease in anxiety, hopefulness. Chronic risk is moderate given some non-modifiable risk factors: psychiatric co-morbid diagnoses, periods of impulsivity, emotional reactivity but also with protective factors including: sense of responsibility to family and social supports, res ponsible for a young child, outpatient care in place, positive coping skills, positive problem solving, capacity to establish therapeutic alliance, willingness to engage with treatment and capacity for self-observation. Counseled on ways to reduce acute and chronic risk including engaging with outpatient providers, using safety plan if needed, utilizing supports, taking medication, and using coping skills. Modifiable risk factors of SI, anxiety and depression were addressed during hospitalization through development of new coping skills, family meeting, safety planning, and medication adjustments. Risk Factors Assessment Male: Yes : Yes Do You Have Access To A Gun?: No Health Problems: No Mental Health Diagnoses: Yes Substance Use Disorders: Yes Previous Attempt: No Family History of Suicide: No Previous Psychiatric Hospitalization: No Hopelessness: No Protective Factors Assessment Responsible for Young Children: Yes Employed: No Stable Relationships: Yes Supportive Family: Yes Tobacco Cessation at Discharge Tobacco Cessation Medication Prescribed at Discharge: Offered & Prescribed Opioid Risk Protocol Educated on use ofnaloxone nasal spray. Kit offered to patient. Patient accepted kit prescription. Naloxone education provided with verbal and written instructions for use, including the following: Call 911 immediately Narcan is used to temporarily reverse the effects of opioid medicines Narcan is short acting, person overdosing could slip back into overdose state (hence importance of calling 911) Narcan has no effect in people who are not taking opioid medicines. Administering Narcan can cause person to experience serious withdrawal symptoms (person might not wake up happy) Review of [facility] provision Discharge Data Lab Results 08/19/23 08/19/23 08/19/23 11:48 12:39 12:41 WBC 6.16 RBC 4.37 L Hgb 13.6 L Hct 38.9 L MCV 89.0 MCH 31.1 MCHC 35.0 RDW Std Deviation 41.5 RDW Coeff of Aline 12.6 Plt Count 268 MPV 9.6 Immature Gran % (Auto) 0.2 Neut % (Auto) 74.8 Lymph % (Auto) 13.5 [place] % (Auto) 8.0 Eos % (Auto) 2.4 Baso % (Auto) 1.1 Neut # (Auto) 4.61 Lymph # (Auto) 0.83 L [place] # (Auto) 0.49 Eos # (Auto) 0.15 Baso # (Auto) 0.07 Immature Gran # (Auto) 0.01 Sodium 139 Potassium 4.1 Chloride 104 Carbon Dioxide 31 Anion Gap 4 BUN 12 Creatinine 0.69 Est Cr Clr Drug Dosing 133.3 Est GFR ( Amer) 147.6 Est GFR (Non-Af Amer) 127.4 BUN/Creatinine Ratio 17.4 Glucose 99 Calcium 9.6 TSH 1.213 Urine Color Yellow Urine Appearance Clear Urine pH 7.0 Ur Specific [place] 1.028 Urine Protein Negative Urine Glucose (UA) Negative Urine Ketones Negative Urine Blood Negative Urine Nitrite Negative Urine Bilirubin Negative Urine Urobilinogen Negative Ur Leukocyte Esterase Negative Salicylates < 3.0 L Urine Opiates Screen Neg Ur Methadone, Qual Neg Acetaminophen < 3 L Urine Barbiturates Neg Ur Phencyclidine (PCP) Neg U Amphetamin/Meth Scrn Neg MDMA (Ecstasy) Screen Neg U Benzodiazepines Scrn Neg Ur Cocaine Metabolite Neg U Marijuana (THC) Screen Neg Ethyl Alcohol mg/dL < 10.0 SARS-CoV-2, RNA, NAAT 08/19/23 12:57 WBC RBC Hgb Hct MCV MCH MCHC RDW Std Deviation RDW Coeff of Aline Plt Count MPV Immature Gran % (Auto) Neut % (Auto) Lymph % (Auto) [place] % (Auto) Eos % (Auto) Baso % (Auto) Neut # (Auto) Lymph # (Auto) [place] # (Auto) Eos # (Auto) Baso # (Auto) Immature Gran # (Auto) Sodium Potassium Chloride Carbon Dioxide Anion Gap BUN Creatinine Est Cr Clr Drug Dosing Est GFR ( Amer) Est GFR (Non-Af Amer) BUN/Creatinine Ratio Glucose Calcium TSH Urine Color Urine Appearance Urine pH Ur Specific [place] Urine Protein Urine Glucose (UA) Urine Ketones Urine Blood Urine Nitrite Urine Bilirubin Urine Urobilinogen Ur Leukocyte Esterase Salicylates Urine Opiates Screen Ur Methadone, Qual Acetaminophen Urine Barbiturates Ur Phencyclidine (PCP) U Amphetamin/Meth Scrn MDMA (Ecstasy) Screen U Benzodiazepines Scrn Ur Cocaine Metabolite U Marijuana (THC) Screen Ethyl Alcohol mg/dL SARS-CoV-2, RNA, NAAT NEGATIVE Hospital Course (1) Depressive disorder: (2) Panic disorder: Plan 08/22/2023: Continue current medications and tx plan. 08/21/2023: Start sertraline 25mg daily. 08/20/2023: The patient was admitted to the [facility]) on q15 min checks (behavioral with suicide precautions) for safety. The patient will participate in group, recreational, and milieu therapies and will be offered additional individual and family sessions as clinically appropriate. Risks/benefits/alternatives reviewed re: retrial of lower dose Lexapro vs. another SSRI. Patient preferred trial of Zoloft and will receive now dose 25 mg. Mental Health & Subst Abuse Tx Psychiatrist Name of Psychiatrist: [facility] Date Of Appointment With Psychiatric Provider: 08/23/2023 Time of Appointment with Psychiatrist: 4:30pm Psychiatric Appointment Comment: [address] [place] [address] Therapist Name of Therapist: [facility] Date of Therapist Appointment: 08/23/2023 Time of Therapist Appointment: 4:30pm Therapy Appointment Comment: [address] [place] [address] Post Discharge Appointments Primary Care Physician Name Of Family Doctor/PCP: [facility] Time of Appointment with PCP: please follow up as needed Provider Appointment Comment: [address] [place] [address] , [place] [address] Smoking Cessation Counseling Tobacco Cessation Medication Prescribed at Discharge: Offered & Prescribed Other #1: Name of Aftercare Appointment: [facility] Phone Number of Aftercare Appointment: [phone] Date of Aftercare Appointment: 08/24/23 Time of Aftercare Appointment: 10:15AM Aftercare Appointment Comment: [address] [place] [address] Contact Information Discharge Discharge Address: [facility] [address] [place] [address] Discharge Plan Discharge Items Patient Disposition: Home - Self-Care Reason For Visit: MDD Discharge Diagnosis: Major Depressive Disorder with anxious distress Activity: Resume your previous activity Non-emergency contact: Primary Care Provider and Therapist Call non-emergency contact if: you have any medication questions and your symptoms worsen Follow-up/Referrals: Jaya Hernandez MD [Primary Care Provider] - Diet: Regular Addtl Attending Provider Instructions: Optional mobile apps we discussed: -Suicide safety plan -Virtual Hope Box SPECIAL CARE INSTRUCTIONS: 1. Follow through with your scheduled aftercare appointments. If unable to keep an appointment, please call to reschedule. 2. Take your medication only as prescribed. Medication should not be changed or stopped without the approval of your doctor. In the event of worsening symptoms or concerns about side effects, contact your doctor immediately. 3. Utilize new healthy coping skills, anger management skills, and stress management skills learned during your hospitalization. Journal feelings and process them with a support person. Identify stressors or situations that may result in relapse, deterioration or inappropriate behaviors and develop a plan to deal with those issues. 4. If your coping skills are ineffective and you are in crisis, contact your outpatient providers for direction. If unable to reach your providers, please call the [facility] CRISIS LINE AT , go to the [facility] walk-in center at [address], [address], [place], or go to the closest Emergency Room. 5. Avoid alcohol and un-prescribed drugs. 6. You have been provided with the Mental Health Advance Directives Pamphlet for your review. 7. Your condition is stable for discharge to outpatient level of care, but recovery is an ongoing process. Ifthoughts to harm yourself or others return, follow the safety plan developed during your stay. Planning for a safe return home includes securing weapons. Our treatment team recommends weaponsbe removed from the home until your outpatient provider reassesses your progress. In rare cases where the items themselvescannot be removed, guns and ammunitionshould be secured separatelyand keys stored by a reliable personoutside of the home. If you were admitted on an involuntary commitment, the police or other legal authorities may be involved in this process. AFTERCARE APPOINTMENTS: * Please call your insurance company prior to your scheduled appointment to confirm your aftercare providers are covered. Take your insurance information to your appointments. WHO TO CALL AND WHEN: Medical Emergencies: For questions or emergencies related to your hospital stay, please contact the Inpatient Behavioral Health Unit at [phone]. A reducing system operator is on-call 03/05 for the Behavioral Health Unit for emergencies At any time you feel your situation is an emergency, you may also call 911 immediately. National Crisis Hotline: 971 Pending Studies at Discharge: No Stand-Alone Forms: My [facility] LUMI Mask, Smoking Cessation Medications and DC Order Prescriptions: New nicotine (polacrilex) [Nicorette] 2 mg Gum 2 mg MT Q2H PRN (Reason: nicotine cravings) 30 Days Qty: 396 0RF buprenorphine HCl 8 mg Tablet, Sublingual 8 mg sublingual BID Qty: 1 0RF hydroxyzine HCl 25 mg tablet 25 mg PO DAILY PRN (Reason: anxiety) 30 Days Qty: 30 0RF hydroxyzine HCl 50 mg tablet 50 mg PO HS PRN (Reason: insomnia) 30 Days Qty: 30 0RF sertraline 25 mg tablet 25 mg PO DAILY 30 Days Qty: 30 0RF naloxone [Narcan] 4 mg/actuation spray,non-aerosol 1 spray intranasal ONCE Qty: 2 0RF Discontinued Sublocade 300 mg/1.5 mL solution, extended rel syringe 0 mg SUBCUT UD venlafaxine 75 mg capsule,extended release 24hr 75 mg PO QPM Rx Instructions: Patient states he takes this medication in the evening. hydroxyzine pamoate 25 mg capsule 25 mg PO Q8 PRN (Reason: Anxiety) Discharge Orders: Discharge Order (Routine); Ordered 08/23/23 Ordered By: Maria Esther Tate Admission Data Admit Date/Time: 08/19/23 15:56 Attending Provider: Magdalena Monroy Admit Provider: Good,Magdalena R. Primary Care Provider: Jaya Hernandez Other Interventions: Discharge Summary Assessment (RN) Last Done: 08/23/23 13:57 PSY Interdisciplinary Discharge Planning Last Done: 08/23/23 13:57 Coding Level of Care Code 81743 D/C day mgmt > 30 min Diagnoses Depressive disorder F32.A Panic disorder F41.0
[2023-08-23] MEDS: hydrOXYzine HCl 25 MG TAB PO PRN (11:01)
[2023-08-23] MEDS: NICOTINE POLACRILEX 2 MG GUM MT PRN (12:55)
== END 2023-08-23 14:56 | disposition home or self-care (01) | DRG 881 ==
LOC: ED 10:52 → 3S 15:56 → ED 16:22